=== PATIENT | male | born 1985 | race American Indian/Alaskan Native ===

== ENCOUNTER 2018-09-15 23:18 | Emergency (ER) | payer OTHER ==
[~2018-09-15] VITALS: Ht 190.5 cm; Wt 158.8 kg
[~2018-09-15 23:18] MED LIST: NORCO 5-325 TA1 EACH PO; ZOFRAN ODT4 MG PO
== END 2018-09-16 01:02 | disposition home or self-care (01) ==
LOC: ED 23:18
DX: S60.212A Contusion of left wrist, initial encounter (principal); W22.8XXA Striking against or struck by other objects, initial encounter; Y99.0 Civilian activity done for income or pay
CPT/HCPCS: 73110; 99283-25

== ENCOUNTER 2024-08-08 11:21 | Emergency (ER) | payer OTHER ==
[~2024-08-08] VITALS: Ht 190.5 cm; Wt 150.6 kg
[~2024-08-08 11:21] MED LIST changes: +METFORMIN HCL500 MG PO
[2024-08-08] MEDS ORDERED: KETOROLAC TROMETHAMINE 15 MG/ML VIAL IV ONE ×2 (11:30→15:00)
[2024-08-08] MEDS ORDERED: ondansetron HCL 4 MG/2 ML VIAL IV PRN (11:30)
[2024-08-08 11:41] LABS: BASOPHILS 0.9 % (0-2); EOSINOPHILS 1.4 % (0-6); HEMATOCRIT 51.8 % (35.0-50.0); HEMOGLOBIN 17.4 g/dL (12.0-18.0); LYMPHOCYTES 17.2 % (24-44); MCH 30.1 (27-36); MCHC 33.6 g/dl (30-36); MCV 89.8 fl (81-99); MONOCYTES 5.7 % (0-12); NEUTROPHILS 74.8 % (39-80); PLATELET COUNT 285 K/uL (140-440); RBC 5.77 M/ul (4.3-5.7); RDW 14.3 (10.5-15.0)
[2024-08-08 11:56] LABS: ALBUMIN 4.3 g/dL (3.4-5.0); BILIRUBIN, TOTAL 0.9 ng/dL (0.2-1.0); BUN/CREATININE RATIO 17.29 (6.0-28.6); CALCIUM 8.9 mg/dL (8.5-10.1); CREATININE, SERUM 1.33 mg/dL (0.70-1.30); PROTEIN, TOTAL 8.6 g/dL (6.4-8.2)
[2024-08-08 14:00] LABS: BILIRUBIN, URINE NEGATIVE (negative); BLOOD/HGB, URINE LARGE (Negative); KETONE, URINE NEGATIVE (Negative); LEUK ESTERASE, URINE NEGATIVE (negative); NITRITE, URINE NEGATIVE (negative); PH, URINE 5.5 (5-7)
[2024-08-08 14:07] LABS: BACTERIA, URINE 4+ /hpf (negative); CASTS, URINE NONE SEEN \\lpf; COLLECTION TYPE, URINE CLEAN CATCH; CRYSTALS, URINE AMORPHOUS URATES 1+ (0-1+); EPITHELIAL CELLS, URINE SQUAMOUS 3+ /lpf (0-1+); REFLEX CULTURE, URINE No (No)
[2024-08-08] MEDS ORDERED: MORPHINE SULFATE 4 MG/ML VIAL IV ONE (15:00)
[2024-08-08] MEDS ORDERED: HYDROCODON-ACE1 EA10 PO (16:25)
[2024-08-08] MEDS ORDERED: ONDANSETRON ODT4 MG PO (16:25)
[2024-08-08] MEDS ORDERED: HYDROCODONE BIT/ACETAMINOPHEN 5/325 MG 1 TAB HOME.PACK PO ONE (16:30)
[2024-08-08 16:42] VITALS: BP 139/79
[2024-08-08] MEDS ORDERED: HYDROCODONE/ACETA 5/325 TAB PO ONE (16:45)
== END 2024-08-08 16:43 | disposition home or self-care (01) ==
LOC: ED 11:21
PROVIDERS: Emergency Medicine
DX: N13.2 Hydronephrosis with renal and ureteral calculous obstruction (principal); E11.9 Type 2 diabetes mellitus without complications; Z79.84 Long term (current) use of oral hypoglycemic drugs
CPT/HCPCS: 36415; 74176; 80053; 81001; 85025; 96374; 96375; 96376; 99284-25; J1885; J2270; J2405

== ENCOUNTER 2024-12-09 13:30 | Emergency (ER) | payer BC, OTHER ==
[~2024-12-09] VITALS: Ht 190.5 cm; Wt 153.8 kg
[~2024-12-09 13:30] MED LIST changes: +HYDROCODON-ACE1 EA10 PO; +ONDANSETRON ODT4 MG PO
[2024-12-09] MEDS ORDERED: ASPIRIN 81 MG CHEW PO ONE (13:45)
[2024-12-09 13:50] LABS: BASOPHILS 0.7 % (0-2); EOSINOPHILS 3.3 % (0-6); HEMATOCRIT 47.6 % (35.0-50.0); HEMOGLOBIN 16.5 g/dL (12.0-18.0); LYMPHOCYTES 24.2 % (24-44); MCH 30.2 (27-36); MCHC 34.7 g/dl (30-36); MCV 87.2 fl (81-99); MONOCYTES 5.5 % (0-12); NEUTROPHILS 66.3 % (39-80); PLATELET COUNT 288 K/uL (140-440); RBC 5.46 M/ul (4.3-5.7); RDW 13.8 (10.5-15.0)
[2024-12-09 14:07] LABS: ALBUMIN 3.9 g/dL (3.4-5.0); ALBUMIN/GLOBULIN RATIO 1.11 (1.1-2.4); ANION GAP 7.9 (7-21); BILIRUBIN, TOTAL 0.8 mg/dL (0.2-1.0); BUN/CREATININE RATIO 13.18 (6.0-28.6); CALCIUM 8.5 mg/dL (8.5-10.1); CREATININE, SERUM 0.91 mg/dL (0.70-1.30); MAGNESIUM 1.9 mg/dL (1.8-2.4); POTASSIUM 3.9 mmol/L (3.5-5.1); PROTEIN, TOTAL 7.4 g/dL (6.4-8.2)
[2024-12-09 15:35] VITALS: BP 128/98
--- NOTE | 2024-12-10 18:57 | EKG ---
[facility] [address] [facility] [place] [address] Signed Normal sinus rhythm Left axis deviation Minimal voltage criteria for LVH, may be normal variant ( [place] product ) Abnormal ECG No previous ECGs available Confirmed by Jose Armando Munguia MD ([id number]) on 12/10/2024 6:56:50 PM Electronically Signed By: JOSE ARMANDO MUNGUIA MD 12/10/24 1857 PATIENT NAME: RUSSDAMARI DOBSON Electrocardiogram DATE OF : 83 PHYSICIAN: JOSE ARMANDO MUNGUIA MD REPORT #: [id number] REPORT IS CONFIDENTIAL AND NOT TO BE RELEASED WITHOUT AUTHORIZATION
== END 2024-12-09 15:35 | disposition home or self-care (01) ==
LOC: ED 13:30
PROVIDERS: Emergency Medicine
DX: R07.89 Other chest pain (principal); E11.9 Type 2 diabetes mellitus without complications
CPT/HCPCS: 36415; 71045; 80053; 83735; 84484; 85025; 93005; 93010; 99285-25; A9270